=== PATIENT | male | born 1975 | race Caucasian/White ===

== ENCOUNTER 2024-01-24 16:05 | Emergency (ER) | payer BC, MEDICAID ==
[~2024-01-24] VITALS: Ht 175.3 cm; Wt 97.7 kg
[2024-01-24 16:07] VITALS: BP 165/91; PULSE 71; RESP 14; TEMP 98.4; O2SAT 98
[2024-01-24] MEDS: LIDOcaine 1% W/epiNEPHrine 1:100,000 20ml vial SQ ONE (18:04)
[2024-01-24] MEDS: ceFAZolin/D5W- 1GM premix 50 ML IV SCH (18:11)
[2024-01-24] MEDS: ceFAZolin/D5W- 1GM premix 50 ML IV ONE (18:37)
[2024-01-24] MEDS ORDERED: HYDR-3965 PO (19:14)
[2024-01-24] MEDS ORDERED: CEPH-585 PO (19:14)
== END 2024-01-24 20:03 | disposition home or self-care (01) ==
LOC: ER 16:06
DX: S62.635A Displaced fracture of distal phalanx of left ring finger, initial encounter for closed fracture (principal); S62.637A Displaced fracture of distal phalanx of left little finger, initial encounter for closed fracture; Z79.2 Long term (current) use of antibiotics; Z79.899 Other long term (current) drug therapy; X58.XXXA Exposure to other specified factors, initial encounter; Y93.89 Activity, other specified; Y92.89 Other specified places as the place of occurrence of the external cause; Y99.8 Other external cause status
CPT/HCPCS: 29125; 73130; 96365; 99284; A6222; J0690; J7030; A6449